=== PATIENT | male | born 1975 | race Caucasian/White ===

== ENCOUNTER 2016-11-27 13:05 | Observation (INO) | payer OTHER ==
[2016-11-27] MEDS ORDERED: SODIUM CHLORIDE 0.9% 1,000 ML IV STA (13:22)
--- NOTE | 2016-11-27 13:25 | ED ---
General Adult HPI - General Chief complaint: Seizure Stated complaint: ETOH Time Seen by Provider: 11/27/16 13:10 Source: patient, EMS, RN notes reviewed Mode of arrival: EMS Limitations: no limitations - History of Present Illness Initial comments: This is a 41-year-old male who has a past medical history significant for seizures. Patient also is an alcoholic. Patient states he stopped taking his Keppra while ago because he ran out of medication. Patient states today he had 2 seizures and so he decided come emergency department. Patient states he has been drinking today as well. Patient denies any suicidal homicidal ideations. Patient denies any other symptoms except for an abrasion on his left knee. Patient denies headache patient denies numbness weakness. Patient denies lightheadedness dizziness or syncopal episode. Patient denies any chest pain palpitations difficulty breathing first breath per patient denies abdominal pain patient denies nausea vomiting diarrhea. - Related Data Home Medications Medication Instructions Recorded Confirmed Melatonin 5 mg PO HS 11/27/16 11/27/16 Multivitamins, Thera [Multivitamin 1 tab PO DAILY 11/27/16 11/27/16 (formulary)] Sertraline [Zoloft] 50 mg PO DAILY 11/27/16 11/27/16 levETIRAcetam [Keppra] 500 mg PO BID 11/27/16 11/27/16 Allergies Allergy/AdvReac Type Severity Reaction Status Date / Time venom-honey bee Allergy Anaphylaxis Verified 11/27/16 13:54 [bee venom (honey bee)] Review of Systems ROS Statement: Those systems with pertinent positive or pertinent negative responses have been documented in the HPI. ROS Other: All systems not noted in ROS Statement are negative. Past Medical History Past Medical History: Hypertension Additional Past Medical History / Comment(s): PTSD, depression, Alcohol History of Any Multi-Drug Resistant Organisms: None Reported Past Surgical History: No Surgical Hx Reported Additional Past Surgical History / Comment(s): Craniotomy and left shoulder surgery Past Anesthesia/Blood Transfusion Reactions: Previous Problems w/ Anesthesia Past Psychological History: Anxiety, Depression, PTSD Smoking Status: Current every day smoker General Exam - General Exam Comments Initial Comments: GENERAL: Patient is well-developed and well-nourished. Patient is nontoxic and well- hydrated and is in no acute distress. Patient does appear intoxicated. ENT: Neck is soft and supple. No significant lymphadenopathy is noted. Oropharynx is clear. Moist mucous membranes. Neck has full range of motion without eliciting any pain. EYES: The sclera were anicteric and conjunctiva were pink and moist. Extraocular movements were intact and pupils were equal round and reactive to light. Eyelids were unremarkable. PULMONARY: Unlabored respirations. Good breath sounds bilaterally. No audible rales rhonchi or wheezing was noted. CARDIOVASCULAR: There is a regular rate and rhythm without any murmurs gallops or rubs. ABDOMEN: Soft and nontender with normal bowel sounds. No palpable organomegaly was noted. There is no palpable pulsatile mass. SKIN: Skin is clear with no lesions or rashes and otherwise unremarkable. NEUROLOGIC: Patient is alert and oriented x3. Cranial nerves II through XII are grossly intact. Motor and sensory are also intact. Normal speech, volume and content. Symmetrical smile. MUSCULOSKELETAL: Normal extremities with adequate strength and full range of motion. No lower extremity swelling or edema. No calf tenderness. LYMPHATICS: No significant lymphadenopathy is noted PSYCHIATRIC: Normal psychiatric evaluation. Normal interpersonal interactions appears functionally intact in deals appropriately with others. No signs of depression. No signs of anxiety. Limitations: no limitations Course Vital Signs 11/27/16 11/27/16 13:10 13:34 Temperature 98.8 F Pulse Rate 122 H 98 Respiratory 18 18 Rate Blood Pressure 164/101 132/87 O2 Sat by Pulse 96 98 Oximetry Medical Decision Making - Medical Decision Making EKG shows sinus tachycardia at 114 bpm [place] interval 256 QRS is 86 QT interval 328 QTC is 452. Patient's EKG shows no ST segment elevation or depression or T wave abnormalities are noted Patient's alcohol is above 400 and therefore he'll be admitted and observed upstairs. Patient is in seizure precautions. I gave the patient a loading dose of Keppra - Lab Data Result diagrams: 11/27/16 13:30 Lab Results 11/27/16 Range/Units 13:30 WBC 6.5 (3.8-10.6) k/uL RBC 3.95 L (4.30-5.90) m/uL Hgb 14.2 (13.0-17.5) gm/dL Hct 40.3 (39.0-53.0) % MCV 101.9 H (80.0-100.0) fL MCH 35.8 H (25.0-35.0) pg MCHC 35.2 (31.0-37.0) g/dL RDW 13.0 (11.5-15.5) % Plt Count 126 L (150-450) k/uL Neutrophils % 74 % Lymphocytes % 16 % Monocytes % 7 % Eosinophils % 1 % Basophils % 1 % Neutrophils # 4.9 (1.3-7.7) k/uL Lymphocytes # 1.0 (1.0-4.8) k/uL Monocytes # 0.5 (0-1.0) k/uL Eosinophils # 0.1 (0-0.7) k/uL Basophils # 0.0 (0-0.2) k/uL Macrocytosis Slight Disposition Clinical Impression: Alcohol intoxication, Seizures Disposition: ADMITTED IP TO THIS HOSP Referrals: None,Stated [Primary Care Provider] - 1-2 days Time of Disposition: 14:03
[2016-11-27] MEDS ORDERED: levETIRAcetam IV 1,000 MG in SALINE 1 100ML.BAG IVPB STA (13:27)
[2016-11-27 13:39] LABS: Basophils % (A) 1 %; CH 36.7; CHCM 36.2; Eosinophils # (A) 0.1 k/uL (0-0.7); Eosinophils % (A) 1 %; HCT 40.3 % (39.0-53.0); HDW 2.29; HGB 14.2 gm/dL (13.0-17.5); Luc % (Auto) 2; Lymphocytes % (A) 16 %; MCH 35.8 pg (25.0-35.0); MCHC 35.2 g/dL (31.0-37.0); MCV 101.9 fL (80.0-100.0); Macrocytosis Slight; Mean Platelet Volume 7.9; Monocytes # (A) 0.5 k/uL (0-1.0); Monocytes % (A) 7 %; Neutrophils # (A) 4.9 k/uL (1.3-7.7); Neutrophils % (A) 74 %; RBC 3.95 m/uL (4.30-5.90); WBC 6.5 k/uL (3.8-10.6); WBC (Perox) 6.64
[2016-11-27 13:48] LABS: ALT 126 U/L (21-72); AST 151 U/L (17-59); Alkaline Phosphatase 74 U/L (38-126); Anion Gap 18 mmol/L; Blood Urea Nitrogen 13 mg/dL (9-20); Calcium 8.7 mg/dL (8.4-10.2); Carbon Dioxide 23 mmol/L (22-30); Chloride 98 mmol/L (98-107); Glucose 141 mg/dL (74-99); Magnesium 1.9 mg/dL (1.6-2.3); Non-African American GFR(MDRD) >60 (>60 ml/min/1.73 sqM); Potassium 3.8 mmol/L (3.5-5.1); Sodium 139 mmol/L (137-145); Total Bilirubin 0.6 mg/dL (0.2-1.3); Total Protein 7.6 g/dL (6.3-8.2)
[2016-11-27] MEDS: 1: MVI, ADULT NO.4 WITH VIT K 10 ML, THIAMINE 100 MG, FOLIC ACID 1 MG in SODIUM CHLORIDE IV SCH ×8 (13:56→19:51)
[2016-11-27] MEDS ORDERED: SODIUM CHLORIDE 0.9% 1,000 ML BAG ONE (13:56)
[2016-11-27 14:03] LABS: Alcohol 450 mg/dL
[2016-11-27] MEDS ORDERED: THIAMINE 100 MG/ML 2 ML VIAL IM STA (14:03)
[2016-11-27] MEDS ORDERED: LORazepam 2 MG/ML INJ IV PRN ×2 (14:03)
[2016-11-27 16:10] VITALS: BMI 22.6
--- NOTE | 2016-11-27 16:43 | CT ---
EXAMINATION TYPE: CT brain wo con DATE OF EXAM: 11/27/2016 COMPARISON: 01/28/2015 HISTORY: 41-year-old male with 2 seizures today. History of seizures. TECHNIQUE: Examination was done in axial plane without intravenous contrast. Coronal and sagittal r econstructions performed. CT DLP: 954.90 mGycm Automated exposure control for dose reduction was used. FINDINGS: There is no evidence of acute intracranial hemorrhage, acute ischemic changes, mass, mass-effect, or extra-axial fluid collection. There is no effacement of cerebral sulci or basal subarachnoid cister ns. There is no hydrocephalus. There is no midline shift. Teixeira-white matter distinction is preserv ed. Very mild cerebral cortical volume loss. Orlinda hole in the posterolateral left frontal region. No calvarial fracture. Paranasal sinuses and mas toid air cells are well pneumatized. Leftward nasal septal deviation. Orbits and globes are intact. IMPRESSION: No acute intracranial abnormality seen.
--- NOTE | 2016-11-27 16:58 | HP ---
HISTORY AND PHYSICAL DATE OF SERVICE: 11/27/2016. CHIEF COMPLAINT: Seizures. HISTORY OF PRESENT ILLNESS: This 41-year-old gentleman with a past medical history of multiple medical problems including hypertension, history PTSD, history depression, history EtOH being followed by the [facility] in the outpatient setting was apparently on Keppra previously. Patient was not on Keppra for the last few days because patient ran out of the [facility] and the patient was visiting [place]. Patient originally from [facility]. The patient apparently had witnessed seizure, generalized tonic-clonic and the patient taken to [facility] and admitted for evaluation and treatment. There is no history of fever, rigors. No history of headache. No history of chest pain, palpitations, hematochezia or melena. PAST MEDICAL HISTORY: History of hypertension, depression, history of EtOH, history of PTSD. MEDICATIONS: 1. Multivitamin 1 p.o. daily. 2. Melatonin 5 mg p.o. q.h.s. 3. Apresoline 500 mg p.o. b.i.d. 4. Zoloft 50 mg. ALLERGIES: VENOM. FAMILY HISTORY: No history of heart disease or strokes in the family. SOCIAL HISTORY: History of smoking. History of ETOH abuse. History of THC. REVIEW OF SYSTEMS: ENT: No diminished hearing or vision. CARDIOVASCULAR: No angina. RESPIRATORY: No cough, hemoptysis. GI: As mentioned earlier. : No dysuria. NERVOUS SYSTEM: No numbness, otherwise mentioned earlier. ALLERGY/IMMUNOLOGY: No history of asthma or hayfever. MUSCULOSKELETAL: As mentioned earlier. HEMATOLOGY: No history anemia. ENDOCRINE: No history of diabetes or hypothyroidism. CONSTITUTIONAL: As mentioned earlier. DERMATOLOGY: Negative. RHEUMATOLOGY: Negative. PSYCHIATRY: As mentioned earlier. PHYSICAL EXAMINATION: Patient is alert and oriented x3. Pulse 83, blood pressure 133/81, respiration 18, temperature 98.4, pulse ox 98% on room air. HEENT: Conjunctivae normal. Oral mucosal moist. NECK: No jugular venous distention. CARDIOVASCULAR: S1, S2. RESPIRATORY: Breath sounds diminished at the bases. A few scattered rhonchi. No crackles. ABDOMEN: Soft, nontender. No mass palpable. LEGS: No edema. No swelling. NERVOUS SYSTEM: Higher functions as mentioned earlier. Moves all four limbs. No focal motor deficits. LYMPHATICS: No lymphadenopathy in the neck, axillae, groin. SKIN: No rash, ulcer or bleeding. Examination of left knee, abrasion present. LAB STUDIES: WBC 6, hemoglobin is 14.2, AST is 120, ALT is 136. ASSESSMENT: 1. Generalized tonic-clonic seizures and uncontrolled seizures and as well as breakthrough seizures. 2. History of ETOH and alcohol intoxication. 3. Increased AST, ALT, alcoholic hepatitis. 4. Thrombocytopenia mild. 5. Hypertension. 6. History of posttraumatic stress disorder. 7. History of depression. 8. History of noncompliance. 9. History of craniotomy and left shoulder surgery. 10.History of anxiety, depression, posttraumatic stress disorder. RECOMMENDATIONS AND DISCUSSION: This 41-year-old gentleman who presented with multiple complex medical issues, will monitor the patient closely. Continue the current medications, symptomatic treatment. WA protocol. EtOH withdrawal symptoms. Neurology evaluation. Otherwise I would also recommend Ativan p.r.n. Guarded prognosis. Keppra has been initiated. Guarded prognosis because of multiple complex medical issues. Further recommendations to follow. I recommend the patient attend AA and rehab also. Overall prognosis guarded because of above mentioned multiple complex medical issues and repeat labs have been noted. CT brain also will be ordered. MMODL / IJN: [id number] /
[2016-11-27] MEDS: THIAMINE 100 MG TAB PO SCH (17:47)
[2016-11-27] MEDS: NICOTINE 21MG/24HR PATCH TRANSDERM SCH (17:57)
[2016-11-27 18:10] LABS: Appearance,Urine Clear (Clear); Bacteria,Urine Rare /hpf; Bilirubin,Urine Negative (Negative); Glucose,Urine (UA) Negative (Negative); Ketones,Urine 1+ (Negative); Leukocyte Esterase,Urine Negative (Negative); Mucus,Urine Rare /hpf; Nitrite,Urine Negative (Negative); PH, Urine 5.5 (5.0-8.0); Particle Count 613; Protein,Urine 1+ (Negative); RBC,Urine 5 /hpf (0-5); UA Billing (MACRO vs. MICRO) MICRO; Urobilinogen,Urine <2.0 mg/dL (<2.0)
[2016-11-27] MEDS: levETIRAcetam IV 750 MG in SODIUM CHLORIDE 0.9% 100 ML IVPB SCH (19:50)
[2016-11-27] MEDS ORDERED: MELATONIN 5 MG TABLET PO SCH (21:00)
[2016-11-28 00:08] VITALS: RESP 16
[2016-11-28] MEDS: LORazepam 2 MG/ML INJ IV PRN ×4 (00:20→08:39)
[2016-11-28] MEDS: 1: MVI, ADULT NO.4 WITH VIT K 10 ML, THIAMINE 100 MG, FOLIC ACID 1 MG in SODIUM CHLORIDE IV SCH ×4 (06:18)
[2016-11-28 06:38] LABS: Basophils % (A) 0 %; CH 36.6; CHCM 35.8; Eosinophils # (A) 0.1 k/uL (0-0.7); Eosinophils % (A) 1 %; HCT 38.5 % (39.0-53.0); HDW 2.32; HGB 13.4 gm/dL (13.0-17.5); Luc # (Auto) 0.09; Luc % (Auto) 1; Lymphocytes % (A) 14 %; MCH 35.6 pg (25.0-35.0); MCHC 34.8 g/dL (31.0-37.0); MCV 102.5 fL (80.0-100.0); Macrocytosis Slight; Monocytes # (A) 0.4 k/uL (0-1.0); Monocytes % (A) 6 %; Neutrophils # (A) 5.4 k/uL (1.3-7.7); Neutrophils % (A) 78 %; RBC 3.76 m/uL (4.30-5.90); WBC (Perox) 7.19
[2016-11-28 07:08] LABS: ALT 105 U/L (21-72); AST 130 U/L (17-59); Alkaline Phosphatase 58 U/L (38-126); Anion Gap 8 mmol/L; Blood Urea Nitrogen 7 mg/dL (9-20); Calcium 9.2 mg/dL (8.4-10.2); Carbon Dioxide 27 mmol/L (22-30); Chloride 99 mmol/L (98-107); Glucose 69 mg/dL (74-99); Non-African American GFR(MDRD) >60 (>60 ml/min/1.73 sqM); Potassium 3.8 mmol/L (3.5-5.1); Sodium 134 mmol/L (137-145); Total Bilirubin 1.1 mg/dL (0.2-1.3)
[2016-11-28 07:26] VITALS: BP 134/74; PULSE 63; TEMP 98.2
[2016-11-28] MEDS: NICOTINE 21MG/24HR PATCH TRANSDERM SCH (08:24)
[2016-11-28] MEDS: levETIRAcetam IV 750 MG in SODIUM CHLORIDE 0.9% 100 ML IVPB SCH (08:24)
[2016-11-28] MEDS ORDERED: SERTRALINE 50 MG TAB PO SCH (09:00)
[2016-11-28] MEDS: THIAMINE 100 MG TAB PO SCH (16:01)
--- NOTE | 2016-11-28 17:11 | P.DS ---
Providers Date of admission: 11/27/16 14:05 Attending physician: Joseph Cast Primary care physician: Stated None Hospital Course: This 41-year-old gentleman with a past medical history multiple medical problems was admitted for seizures possibly related to alcohol. The patient was treated symptomatically. Keppra was initiated. Patient was significantly. Alcohol rehab and as well as some AA meetings recommended. Urology follow-up is also recommended. No driving for 6 months per [facility]. On exam vitals stable. Cardio S1-S2 normal. Abdomen soft nontender. No system no focal deficit. Final diagnosis 1. Generalized tonic-clonic seizures and uncontrolled seizures as well as breakthrough seizures possibly secondary to alcohol. 2. History of EtOH and alcohol intoxication. 3. Increased AST ALT alcoholic hepatitis. 4. Thrombocytopenia 5. Hypertension. 6. History of posttraumatic stress disorder. 7. History of depression. 8. History of noncompliance. 9. History of craniotomy left shoulder surgery. 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 Plan - Discharge Summary New Discharge Prescriptions: New Folic Acid 1 mg PO DAILY #30 tablet Nicotine 21Mg/24Hr Patch [Habitrol] 1 patch TRANSDERM DAILY #30 patch Thiamine [Vitamin B-1] 100 mg PO DAILY #30 tab levETIRAcetam [Keppra] 750 mg PO Q12HR #60 tab LORazepam [Ativan] 0.5 mg PO TID #20 tab No Action Multivitamins, Thera [Multivitamin (formulary)] 1 tab PO DAILY Melatonin 5 mg PO HS Sertraline [Zoloft] 50 mg PO DAILY Discharge Medication List Melatonin 5 mg PO HS 11/27/16 [History] Multivitamins, Thera [Multivitamin (formulary)] 1 tab PO DAILY 11/27/16 [History ] Sertraline [Zoloft] 50 mg PO DAILY 11/27/16 [History] Folic Acid 1 mg PO DAILY #30 tablet 11/28/16 [Rx] LORazepam [Ativan] 0.5 mg PO TID #20 tab 11/28/16 [Rx] Nicotine 21Mg/24Hr Patch [Habitrol] 1 patch TRANSDERM DAILY #30 patch 11/28/16 [ Rx] Thiamine [Vitamin B-1] 100 mg PO DAILY #30 tab 11/28/16 [Rx] levETIRAcetam [Keppra] 750 mg PO Q12HR #60 tab 11/28/16 [Rx] Follow up Appointment(s)/Referral(s): Glenn Frias DO [Doctor of Osteopathic Medicine] - 3 Days Ambulatory/Diagnostic Orders: Comprehensive Metabolic Panel [LAB.AMB] Time Frame: 3 Days, Location: Determined By Patient Patient Instructions/Handouts: Nonepileptic Seizures (DC), Alcohol Intoxication (DC) Activity/Diet/Wound Care/Special Instructions: Keppra level results to PCP No smoking, No etoh DIet: cardiac Discharge Disposition: HOME SELF-CARE
== END 2016-11-28 15:54 | disposition home or self-care (01) ==
LOC: EC 13:05 → 3OBS 14:05
PROVIDERS: ADMIT Hospitalist; ATTEND Hospitalist
DX: G40.409 Other generalized epilepsy and epileptic syndromes, not intractable, without status epilepticus (principal); F10.229 Alcohol dependence with intoxication, unspecified; Y90.8 Blood alcohol level of 240 mg/100 ml or more; S80.212A Abrasion, left knee, initial encounter; X58.XXXA Exposure to other specified factors, initial encounter; I10 Essential (primary) hypertension; F43.10 Post-traumatic stress disorder, unspecified; F17.200 Nicotine dependence, unspecified, uncomplicated; F41.8 Other specified anxiety disorders; R00.0 Tachycardia, unspecified; K70.10 Alcoholic hepatitis without ascites; D69.6 Thrombocytopenia, unspecified; Z79.899 Other long term (current) drug therapy; Z91.030 Bee allergy status; Z91.19 Patient's noncompliance with other medical treatment and regimen
CPT/HCPCS: 96361 ×3; 96365; 96375; 96376 ×2; 99285; 36415; 93005; 80053 ×2; 80177; 83735; 85025 ×2; 81001; 80306; 80320; 70450; G0378 ×2; S4990 ×2; J2060 ×2; J3411; J1953 ×3

== ENCOUNTER 2016-11-29 01:39 | Emergency (ER) | payer OTHER ==
[2016-11-29] MEDS ORDERED: LORazepam 2 MG/ML SYRINGE IV STA ×2 (01:52→06:33)
--- NOTE | 2016-11-29 01:58 | ED ---
Seizure HPI - General Chief Complaint: Seizure Stated Complaint: SEIZURE Time Seen by Provider: 11/29/16 01:41 Source: patient, EMS, RN notes reviewed Mode of arrival: EMS Limitations: no limitations - History of Present Illness Initial Comments: This a 41-year-old male presents emergency department via EMS chief complaint seizure. Patient states that he had another seizure today. Patient states that he was discharged yesterday from the hospital. Patient states that he's had severe the last 4-5 months and sees a physician out of [place]. Patient states that he is over here looking at a house that he is inheriting. Patient was admitted yesterday for seizure in alcohol intoxication. Patient states he takes Keppra but states he does not have his medications as they are in [place]. Patient states he was written prescriptions upon discharge Keppra and Ativan though he states the pharmacy would not fill because the [place] did not approve these. Patient denies fever, chills, chest pain, shortness breath, nausea vomiting. - Related Data Home Medications Medication Instructions Recorded Confirmed Melatonin 5 mg PO HS 11/27/16 11/27/16 Multivitamins, Thera [Multivitamin 1 tab PO DAILY 11/27/16 11/27/16 (formulary)] Sertraline [Zoloft] 50 mg PO DAILY 11/27/16 11/27/16 Previous Rx's Medication Instructions Recorded Folic Acid 1 mg PO DAILY #30 tablet 11/28/16 LORazepam [Ativan] 0.5 mg PO TID #20 tab 11/28/16 Nicotine 21Mg/24Hr Patch [Habitrol] 1 patch TRANSDERM DAILY #30 patch 11/28/16 Thiamine [Vitamin B-1] 100 mg PO DAILY #30 tab 11/28/16 levETIRAcetam [Keppra] 750 mg PO Q12HR #60 tab 11/28/16 Allergies Allergy/AdvReac Type Severity Reaction Status Date / Time venom-honey bee Allergy Anaphylaxis Verified 11/27/16 13:54 [bee venom (honey bee)] Review of Systems ROS Statement: Those systems with pertinent positive or pertinent negative responses have been documented in the HPI. ROS Other: All systems not noted in ROS Statement are negative. Past Medical History Past Medical History: Hypertension, Seizure Disorder Additional Past Medical History / Comment(s): PTSD, depression, Alcohol History of Any Multi-Drug Resistant Organisms: None Reported Past Surgical History: No Surgical Hx Reported Additional Past Surgical History / Comment(s): Craniotomy and left shoulder surgery Past Anesthesia/Blood Transfusion Reactions: Previous Problems w/ Anesthesia Past Psychological History: Anxiety, Depression, PTSD Smoking Status: Current every day smoker Past Alcohol Use History: Abuse, Heavy Past Drug Use History: Marijuana General Exam Limitations: no limitations General appearance: alert, in no apparent distress Head exam: Present: atraumatic, normocephalic, normal inspection Eye exam: Present: normal appearance, PERRL, EOMI. Absent: scleral icterus, conjunctival injection, periorbital swelling ENT exam: Present: normal exam, normal oropharynx, mucous membranes moist Neck exam: Present: normal inspection. Absent: tenderness, meningismus, lymphadenopathy Respiratory exam: Present: normal lung sounds bilaterally. Absent: respiratory distress, wheezes, rales, rhonchi, stridor Cardiovascular Exam: Present: regular rate, normal rhythm, normal heart sounds. Absent: systolic murmur, diastolic murmur, rubs, gallop, clicks Neurological exam: Present: alert, oriented X3, CN II-XII intact, reflexes normal. Absent: motor sensory deficit Skin exam: Present: warm, dry, intact, normal color. Absent: rash Course Vital Signs 11/29/16 11/29/16 01:43 03:02 Temperature 97.0 F L Pulse Rate 96 82 Respiratory 16 Rate Blood Pressure 148/99 O2 Sat by Pulse 99 98 Oximetry Medical Decision Making - Medical Decision Making This a 41-year-old male presented for seizure. Patient was recently admitted and discharged with medications. Patient states his prescriptions was not filled secondary to deny [facility]. Patient was given Keppra and Ativan here. Patient is intoxicated and will be discharged when he is sober. Patient is advised to go back to his home and get his medications. Patient lab work is unchanged from prior. - Lab Data Result diagrams: 11/29/16 01:48 11/29/16 01:48 Lab Results 11/29/16 11/29/16 Range/Units 01:48 01:48 WBC 7.2 (3.8-10.6) k/uL RBC 3.98 L (4.30-5.90) m/uL Hgb 14.3 (13.0-17.5) gm/dL Hct 40.4 (39.0-53.0) % MCV 101.5 H (80.0-100.0) fL MCH 35.9 H (25.0-35.0) pg MCHC 35.4 (31.0-37.0) g/dL RDW 12.6 (11.5-15.5) % Plt Count 85 L (150-450) k/uL Neutrophils % 78 % Lymphocytes % 11 % Monocytes % 9 % Eosinophils % 1 % Basophils % 0 % Neutrophils # 5.6 (1.3-7.7) k/uL Lymphocytes # 0.8 L (1.0-4.8) k/uL Monocytes # 0.6 (0-1.0) k/uL Eosinophils # 0.1 (0-0.7) k/uL Basophils # 0.0 (0-0.2) k/uL Sodium 135 L (137-145) mmol/L Potassium 3.4 L (3.5-5.1) mmol/L Chloride 102 (98-107) mmol/L Carbon Dioxide 19 L (22-30) mmol/L Anion Gap 14 mmol/L BUN 7 L (9-20) mg/dL Creatinine 0.70 (0.66-1.25) mg/dL Est GFR (MDRD) Af Amer >60 (>60 ml/min/1.73 sqM) Est GFR (MDRD) Non-Af >60 (>60 ml/min/1.73 sqM) Glucose 92 (74-99) mg/dL Calcium 9.4 (8.4-10.2) mg/dL Total Bilirubin 0.9 (0.2-1.3) mg/dL AST 121 H (17-59) U/L ALT 106 H (21-72) U/L Alkaline Phosphatase 74 (38-126) U/L Total Protein 7.7 (6.3-8.2) g/dL Albumin 4.8 (3.5-5.0) g/dL Serum Alcohol 175 mg/dL 11/29/16 02:59 EKG performed at 1:50 normal sinus rhythm with a rate of 84 HI interval 162 QRS duration 88 QT/QTC 382/451 Disposition Clinical Impression: Alcoholism /alcohol abuse, Seizures Disposition: HOME SELF-CARE Condition: Stable Instructions: Recurrent Seizures in Adults (ED) Additional Instructions: Please return to the Emergency Department if symptoms worsen or any other concerns. Referrals: Nonstaff,Physician [Primary Care Provider] - 1-2 days Time of Disposition: 03:37
[2016-11-29 02:34] LABS: ALT 106 U/L (21-72); AST 121 U/L (17-59); Alkaline Phosphatase 74 U/L (38-126); Anion Gap 14 mmol/L; Blood Urea Nitrogen 7 mg/dL (9-20); Calcium 9.4 mg/dL (8.4-10.2); Carbon Dioxide 19 mmol/L (22-30); Chloride 102 mmol/L (98-107); Glucose 92 mg/dL (74-99); Non-African American GFR(MDRD) >60 (>60 ml/min/1.73 sqM); Potassium 3.4 mmol/L (3.5-5.1); Sodium 135 mmol/L (137-145); Total Bilirubin 0.9 mg/dL (0.2-1.3); Total Protein 7.7 g/dL (6.3-8.2)
[2016-11-29 02:43] LABS: Alcohol 175 mg/dL
[2016-11-29 02:55] LABS: Basophils % (A) 0 %; CH 36.2; CHCM 35.8; Eosinophils # (A) 0.1 k/uL (0-0.7); Eosinophils % (A) 1 %; HCT 40.4 % (39.0-53.0); HDW 2.41; HGB 14.3 gm/dL (13.0-17.5); Luc # (Auto) 0.15; Luc % (Auto) 2; Lymphocytes # (A) 0.8 k/uL (1.0-4.8); Lymphocytes % (A) 11 %; MCH 35.9 pg (25.0-35.0); MCHC 35.4 g/dL (31.0-37.0); MCV 101.5 fL (80.0-100.0); Mean Platelet Volume 7.9; Monocytes # (A) 0.6 k/uL (0-1.0); Monocytes % (A) 9 %; Neutrophils # (A) 5.6 k/uL (1.3-7.7); Neutrophils % (A) 78 %; RBC 3.98 m/uL (4.30-5.90); RDW 12.6 % (11.5-15.5); WBC 7.2 k/uL (3.8-10.6); WBC (Perox) 7.22
[2016-11-29 06:51] VITALS: BP 148/91; PULSE 93; RESP 18
[2016-11-29 07:02] VITALS: TEMP 97.4
== END 2016-11-29 07:08 | disposition home or self-care (01) ==
LOC: EC 01:39
DX: G40.909 Epilepsy, unspecified, not intractable, without status epilepticus (principal); F10.10 Alcohol abuse, uncomplicated; F32.9 Major depressive disorder, single episode, unspecified; F41.9 Anxiety disorder, unspecified; F43.10 Post-traumatic stress disorder, unspecified; F17.200 Nicotine dependence, unspecified, uncomplicated; Z91.030 Bee allergy status; Z79.899 Other long term (current) drug therapy
CPT/HCPCS: 36415; 93005; 80053; 80177; 85025; 80320; 99284; 96374; 96376; J2060